=== PATIENT | female | born 1990 | race Hispanic/Latino ===

== ENCOUNTER 2020-05-26 13:40 | Emergency (ER) | payer BC ==
[~2020-05-26] VITALS: Ht 157.5 cm; Wt 109.3 kg
[2020-05-26] MEDS ORDERED: IBUPROFEN400 MG PO (15:35)
[2020-05-26] MEDS ORDERED: ULTRAM 50MG50 MG PO (15:37)
== END 2020-05-26 15:59 | disposition home or self-care (01) ==
LOC: FSED 14:15
DX: U07.1 COVID-19 (principal); S93.402A Sprain of unspecified ligament of left ankle, initial encounter; W01.0XXA Fall on same level from slipping, tripping and stumbling without subsequent striking against object, initial encounter; Y93.01 Activity, walking, marching and hiking; E66.9 Obesity, unspecified; E28.2 Polycystic ovarian syndrome
CPT/HCPCS: 99284